=== PATIENT | female | born 1990 | race Caucasian/White ===

== ENCOUNTER 2023-09-05 15:04 | Emergency (ER) | payer OTHER, SELFPAY ==
[2023-09-05 15:07] VITALS: BP 141/81; PULSE 75; RESP 18; TEMP 36.6; O2SAT 96; BMI 27.2
--- NOTE | 2023-09-05 15:44 | DI.RAD.S_ITS ---
PROCEDURE: XR CERVICAL SPINE 2V OR 3V INDICATIONS: neck pain from fall TECHNIQUE: 3 view(s) of the cervical spine were acquired. COMPARISON: None. FINDINGS: Bones: No fractures or dislocations to the C7 level. The lateral masses of C1 appear intact on the odontoid view. No suspicious bony lesions. Soft tissues: No prevertebral soft tissue swelling. IMPRESSION: No displaced fracture or traumatic subluxation. Dictated by: Joe Carrasco M.D. on 09/05/2023 at 16:12 Approved by: Joe Carrasco M.D. on 09/05/2023 at 16:13
--- NOTE | 2023-09-05 15:44 | DI.RAD.S_ITS ---
PROCEDURE: XR LUMBAR SPINE 2-3V INDICATIONS: Fall TECHNIQUE: 3 views of the lumbar spine were acquired. COMPARISON: None. FINDINGS: Bones: 5 [id number] vertebrae are present. There is normal bony alignment. Mild disc height loss at L5-S1. Mild facet arthropathy of the lumbar spine. No vertebral body compression fractures. No suspicious bony lesions. Soft tissues: Overlying bowel gas pattern is normal. No suspicious soft tissue calcifications. IMPRESSION: No acute osseous abnormalities. Mild degenerative changes of the lower lumbar spine. Dictated by: Joe Carrasco M.D. on 09/05/2023 at 16:13 Approved by: Joe Carrasco M.D. on 09/05/2023 at 16:14
--- NOTE | 2023-09-05 15:44 | DI.RAD.S_ITS ---
PROCEDURE: XR THORACIC SPINE 3V INDICATIONS: Fall TECHNIQUE: 3 views of the thoracic spine were acquired. COMPARISON: None. FINDINGS: Bones: No fractures or dislocations. No suspicious bony lesions. 12 pairs of ribs are noted, and appear intact where visualized. Soft tissues: No paravertebral stripe thickening. IMPRESSION: No acute bony abnormality. Dictated by: Jeo Carrasco M.D. on 09/05/2023 at 16:10 Approved by: Joe Carrasco M.D. on 09/05/2023 at 16:12
--- NOTE | 2023-09-05 15:52 | ED.FALL ---
HPI - Fall <Tad Amor PA-C - Last Filed: 09/05/23 17:48> General Chief Complaint: Fall Stated Complaint: fall, back pain Time Seen by Provider: 09/05/23 15:16 Source: patient Mode of arrival: Ambulatory History of Present Illness HPI Narrative: 33-year-old female with past medical history herniated lumbar disc presents to the ED status post a mechanical fall sustained yesterday. Patient states that she accidentally slipped down some stairs as she was coming, after which patient has been experiencing neck pain and lower back pain. Patient states that her pain is exacerbated with movements. Patient denies numbness, tingling, weakness. Patient is able to bear weight and walk. Patient denies urinary hesitancy, urinary incontinence, stool incontinence. Patient has a prior history of herniated discs which active every once in awhile. Patient has not taken any medications for the pain. Related Data Previous Rx's Medication Instructions Recorded cyclobenzaprine 10 mg tablet 10 mg PO TID PRN muscle spasm #20 09/05/23 tabs Allergies Allergy/AdvReac Type Severity Reaction Status Date / Time No Known Drug Allergies Allergy Verified 09/05/23 15:07 Review of Systems <Tad Amor PA-C - Last Filed: 09/05/23 17:48> Constitutional Constitutional: Denies chills, Denies fatigue, Denies fever(s), Denies frequent falls, Denies lethargy and Denies weakness Eyes Eyes: Denies change in vision, Denies eye discharge, Denies irritation and Denies loss of vision ENT Ears, Nose, Mouth, and Throat: Denies change in voice, Denies dizziness, Reports neck pain, Denies sore throat and Denies throat swelling Cardiovascular Cardiovascular: Denies chest pain, Denies irregular heart rhythm, Denies lightheadedness, Denies palpitations, Denies dyspnea, Denies dyspnea on exertion and Denies orthopnea Respiratory Respiratory: Denies cough, Denies dyspnea, Denies dyspnea on exertion and Denies wheezing Gastrointestinal Gastrointestinal: Denies abdominal pain, Denies change in bowel habits, Denies diarrhea, Denies nausea and Denies vomiting Genitourinary Genitourinary: Denies urinary incontinence and Denies urinary hesitancy Musculoskeletal Musculoskeletal: Reports back pain, Denies muscle weakness, Reports neck pain, Denies numbness and Denies tingling Integumentary/Breasts Skin/Breast: Denies pruritus, Denies erythema, Denies rash and Denies wounds Neurologic Neurologic: Denies behavioral changes, Denies confusion, Denies dizziness, Denies frequent falls, Denies loss of vision, Denies numbness, Denies tingling and Denies weakness Psychiatric Psychiatric: Denies anxiety, Denies behavioral changes, Denies confusion, Denies depression, Denies homicidal ideation and Denies suicidal ideation Endocrine Endocrine: Denies fatigue, Denies flushing and Denies palpitations Hematologic/Lymphatic Hematologic/Lymphatic: Denies easy bruising Allergic/Immunologic Allergic/Immunologic: Denies urticaria, Denies throat swelling and Denies wheezing Patient History <Tad Amor PA-C - Last Filed: 09/05/23 17:48> Social History Smoking Status: Never smoker Smoking Status: Never smoker alcohol intake frequency: a few times a week Substance Use Type: does not use Exam <Tad Amor PA-C - Last Filed: 09/05/23 17:48> Narrative Exam Narrative: Const General:?cooperative, healthy appearing and comfortable [facility] Head:?normal to inspection Ears:?hearing grossly normal bilaterally Nose:?external nose normal Face and sinus:?normal facial exam and sinuses nontender Mouth:?oral mucosae normal Throat:?posterior oropharynx normal Eyes General:?appearance normal, both eyes and all related structures Neck Neck:?normal visual inspection and no lymphadenopathy noted Resp Effort & Inspection:?normal respiratory effort Auscultation:?clear to auscultation bilaterally Cardio Rate:?regular rate Rhythm:?regular rhythm Musculoskeletal There is no midline tenderness to palpation. No paraspinal tenderness to palpation. Full range of motion. Patient is movements are slow due to pain. Patient is able to bear weight and walk. Strength and sensation is intact. Patient is neurovascularly intact. Neuro General:?patient alert, patient awake and patient oriented x3 Initial Vital Signs Initial Vital Signs: Vital Signs Temperature 97.8 F 09/05/23 15:07 Pulse Rate 75 09/05/23 15:07 Respiratory Rate 18 09/05/23 15:07 Blood Pressure 141/81 H 09/05/23 15:07 Pulse Oximetry 96 09/05/23 15:07 Oxygen Delivery Method Room Air 09/05/23 15:07 <Mary Johnson MD - Last Filed: 09/06/23 16:03> Initial Vital Signs Initial Vital Signs: Vital Signs Temperature 97.8 F 09/05/23 15:07 Pulse Rate 75 09/05/23 15:07 Respiratory Rate 18 09/05/23 15:07 Blood Pressure 141/81 H 09/05/23 15:07 Pulse Oximetry 96 09/05/23 15:07 Oxygen Delivery Method Room Air 09/05/23 15:07 Course <Tad Amor PA-C - Last Filed: 09/05/23 17:48> Orders Ordered: Discontinued Medications Acetaminophen (Acetaminophen 325 Mg Tablet) 975 mg PO NOW ONE Stop: 09/05/23 15:46 Last Admin: 09/05/23 16:11 Dose: 975 mg Documented By: MERARI Cyclobenzaprine HCl (Cyclobenzaprine 10 Mg Tablet) 10 mg PO NOW ONE Stop: 09/05/23 15:46 Last Admin: 09/05/23 16:11 Dose: 10 mg Documented By: MERARI Ketorolac Tromethamine (Ketorolac 30 Mg/Ml Vial) 30 mg IM NOW ONE Stop: 09/05/23 15:46 Last Admin: 09/05/23 16:11 Dose: 30 mg Documented By: MERARI Vital Signs Vital signs: Vital Signs - 8 hr 09/05/23 15:07 09/05/23 17:38 Temperature 97.8 F Pulse Rate 75 64 Respiratory Rate 18 18 Blood Pressure 141/81 H 122/65 Pulse Oximetry 96 99 Oxygen Delivery Method Room Air Room Air <Mary Johnson MD - Last Filed: 09/06/23 16:03> Orders Ordered: Discontinued Medications Acetaminophen (Acetaminophen 325 Mg Tablet) 975 mg PO NOW ONE Stop: 09/05/23 15:46 Last Admin: 09/05/23 16:11 Dose: 975 mg Documented By: MERARI Cyclobenzaprine HCl (Cyclobenzaprine 10 Mg Tablet) 10 mg PO NOW ONE Stop: 09/05/23 15:46 Last Admin: 09/05/23 16:11 Dose: 10 mg Documented By: MERARI Ketorolac Tromethamine (Ketorolac 30 Mg/Ml Vial) 30 mg IM NOW ONE Stop: 09/05/23 15:46 Last Admin: 09/05/23 16:11 Dose: 30 mg Documented By: MERARI Vital Signs Vital signs: Vital Signs - 8 hr 09/05/23 15:07 09/05/23 17:38 Temperature 97.8 F Pulse Rate 75 64 Respiratory Rate 18 18 Blood Pressure 141/81 H 122/65 Pulse Oximetry 96 99 Oxygen Delivery Method Room Air Room Air MDM - Fall <Tad Amor PA-C - Last Filed: 09/05/23 17:48> MDM Narrative Medical decision making narrative: 33-year-old female with past medical history herniated lumbar disc presents to the ED status post a mechanical fall sustained yesterday. Physical exam is reassuring and there are no red flag symptoms. Patient is very tearful and worried that she might have done extensive damage to her back and neck. Will obtain some x-rays to rule out fractures or dislocations. Will give Toradol, Tylenol, Flexeril for symptoms. Will reassess. Patient's symptoms improved with medications. X-rays without acute findings. Prescribed Flexeril. Recommend continuing Tylenol, ibuprofen. Recommend patient follow-up with her PCP for further evaluation if her symptoms do not improve over the next week. ED return precautions discussed with patient. Patient verbalized understanding. Medical records reviewed: Yes Discharge Plan Departure Patient Disposition: Home Clinical Impression: Neck pain Back pain Qualifiers: Back pain location: low back pain Chronicity: acute Back pain laterality: unspecified Sciatica presence: without sciatica Qualified Code(s): M54.50 - Low back pain, unspecified Instructions: How to Prevent Falls Activity Restrictions/Additional Instructions: You were evaluated in the ED today for neck pain and back pain. Your x-rays did not show any fractures or dislocations. Your symptoms might be from a musculoskeletal sprain/strain of the neck and back. You were given a shot of Toradol, Tylenol and a muscle relaxant. You are being prescribed a muscle relaxant to use at home. It might make you sleepy so please be careful and refrain from driving or operating machinery when taking it. You may also take 600 mg of ibuprofen and 1000 mg of Tylenol every 8 hours with food for the pain. Please follow-up with your PCP as soon as possible. Return to the ED if you have worsening symptoms, urinary difficulties, numbness, tingling, weakness. Prescriptions: New cyclobenzaprine 10 mg tablet 10 mg PO TID PRN (Reason: muscle spasm) Qty: 20 0RF Referrals: Miscellaneous,Doctor, [Primary Care Provider] - Stand Alone Forms: Patient Portal/API ED Sign-out <Mary Johnson MD - Last Filed: 09/06/23 16:03> Cosign ED Attending Dea Attestation: I was immediately available in the department for consultation throughout this patient's visit. Mary Johnson MD
[2023-09-05] MEDS: ACETAMINOPHEN 325 MG TABLET 975 MG PO (16:11)
[2023-09-05] MEDS: CYCLOBENZAPRINE 10 MG TABLET PO (16:11)
[2023-09-05] MEDS: KETOROLAC 30 MG/ML VIAL IM (16:11)
[2023-09-05 17:38] VITALS: BP 122/65; PULSE 64; RESP 18; O2SAT 99
== END 2023-09-05 17:47 | disposition home or self-care (01) ==
PROVIDERS: Emergency Provider Student in an Organized Health Care Education/Training Program
DX: M54.2 Cervicalgia (principal); M54.50 Low back pain, unspecified; W10.9XXA Fall (on) (from) unspecified stairs and steps, initial encounter
CPT/HCPCS: 72040; 72072; 72100; 96372; 99283; 99284; J1885